=== PATIENT | female | born 1950 | race Caucasian/White ===

== ENCOUNTER 2016-05-01 16:11 | Emergency (ER) | payer MEDICARE, OTHER ==
[2016-05-01] MEDS ORDERED: ASPIRIN 81 MG CHEW TAB ONE (16:28)
== END 2016-05-01 19:35 | disposition home or self-care (01) ==
LOC: ER 16:11
DX: M94.0 Chondrocostal junction syndrome [Tietze] (principal); Z79.82 Long term (current) use of aspirin; Z79.899 Other long term (current) drug therapy; Z87.891 Personal history of nicotine dependence
CPT/HCPCS: 36415; 71010; 80053; 82550; 83735; 84484; 85025; 85379; 85610; 85730; 93005